=== PATIENT | female | born 1990 ===

== ENCOUNTER 2020-02-16 | Outpatient (CLI) | payer OTHER | END 2020-02-16 18:00 | disposition home or self-care (01) | LOC: PPH VACUNA | DX: Z23 Encounter for immunization (principal) ==

== ENCOUNTER 2020-11-06 11:07 | Emergency (ER) | payer OTHER ==
[~2020-11-06] VITALS: Ht 165.1 cm; Wt 71.2 kg
[2020-11-06] MEDS ORDERED: PRENATAL + DHA1 EAC1 (11:24)
== END 2020-11-06 17:33 ==
LOC: ER 11:07
DX: O26.851 Spotting complicating pregnancy, first trimester (principal); O36.80X0 Pregnancy with inconclusive fetal viability, not applicable or unspecified; O20.0 Threatened abortion; Z3A.01 Less than 8 weeks gestation of pregnancy; Z03.818 Encounter for observation for suspected exposure to other biological agents ruled out

== ENCOUNTER 2021-06-27 12:50 | Outpatient (CLI) | payer OTHER ==
[~2021-06-27 12:50] MED LIST: PRENATAL + DHA1 EAC1
== END 2021-06-28 09:24 | disposition home or self-care (01) ==
LOC: OBS/DEL 12:50
PROVIDERS: ATTEND Obstetrics & Gynecology
DX: O99.613 Diseases of the digestive system complicating pregnancy, third trimester (principal); K92.89 Other specified diseases of the digestive system; Z3A.38 38 weeks gestation of pregnancy; K52.9 Noninfective gastroenteritis and colitis, unspecified; Z20.822 Contact with and (suspected) exposure to COVID-19

== ENCOUNTER 2021-07-16 05:29 | Inpatient (IN) | payer OTHER ==
[~2021-07-16] VITALS: Ht 167.6 cm; Wt 86.2 kg
[2021-07-16] MEDS ORDERED: IRON236 MG PO (09:14)
== END 2021-07-19 10:25 | disposition home or self-care (01) | DRG 788 ==
LOC: OB/GYN 05:29 → LDR 05:29 → OB/GYN 18:24
PROVIDERS: ADMIT Obstetrics & Gynecology; ATTEND Obstetrics & Gynecology
PROC: 4A1HXCZ Monitoring of Products of Conception, Cardiac Rate, External Approach (ICD-10-PCS; 2021-07-16)
PROC: 10D00Z1 Extraction of Products of Conception, Low, Open Approach (ICD-10-PCS; principal; 2021-07-16 16:00)
DX: O62.1 Secondary uterine inertia (principal); Z3A.40 40 weeks gestation of pregnancy; Z37.0 Single live birth; Z20.822 Contact with and (suspected) exposure to COVID-19